=== PATIENT | male | born 1935 | race Caucasian/White ===

== ENCOUNTER 2017-04-20 10:20 | Observation (INO) | payer MEDICARE, OTHER ==
--- NOTE | 2017-04-20 11:42 | HP ---
SUPERVISING PHYSICIAN: Lon Bernstein MD CHIEF COMPLAINT: Increasing shortness of breath with palpitations. HISTORY OF PRESENT ILLNESS: Mr. Pollock is a 81 year-old patient of Dr. Moses. This morning he was in the office for his annual exam when he had an EKG done and it was noted on EKG that he was having some paroxysmal atrial fibrillation which did respond spontaneously without any intervention. It is reported that the patient has been having increasing shortness of breath over the last week with exertional dyspnea but denies any actual chest pains. Workup in the clinic showed on the x -ray that there was possibly a bibasilar infiltrate and the patient had 2+ pitting edema to the lower extremities. Dr. Su requested the patient be admitted to the medical/surgical floor for continuation of treatment with concerns for new onset of atrial fibrillation with complications from developing congestive heart failure. The patient is directly admitted to the medical/surgical floor in stable condition. PAST MEDICAL HISTORY: 1. Type 2 diabetes mellitus on oral therapy. 2. Hypertension. 3. Hyperlipidemia. 4. Benign prostatic hypertrophy on Flomax. 5. Seasonal allergies. 6. Skin cancer diagnosed in the late 50's with basal cell carcinoma which was cured. PAST SURGICAL HISTORY: 1. Arthroscopy of right knee. 2. Cyst removed from tailbone. 3. Basal cell carcinoma removed from left forehead. CURRENT MEDICATIONS: 1. Aspirin 325 mg daily. 2. Flomax 0.5 mg daily. 3. Glucophage 1000 mg twice a day. 4. Glucotrol XR 5 mg Extended Release daily. 5. Lisinopril 20 mg twice a day. 6. Verapamil 240 mg Sustained Release twice a day. 7. Zocor 20 mg daily. 8. Zyrtec 10 mg daily. ALLERGIES: NO KNOWN DRUG ALLERGIES. FAMILY HISTORY: Father at age 75 with complications to diabetes. Mother at age 85, unknown cause. He does have a sister who has lupus. SOCIAL HISTORY: The patient is retired, has previously been in the and he was a ready mix truck driver. He is and has three children. He has a history of smoking but quit many years previously. He does drink on a regular basis with wine. He denies any illicit drug use. REVIEW OF SYSTEMS: CONSTITUTIONAL: He denies any chills, fever or weight change. HEENT: Denies any hearing problems, blurred vision, eye pain, photophobia or any congestion. CARDIOVASCULAR: Denied chest pains, palpitations, tachycardia, orthopnea but does have edema as noted in the history of present illness. RESPIRATORY: As noted in the history of present illness. Dyspnea was frequent , wheezing and exertional dyspnea. GASTROINTESTINAL: Denies any abdominal pain, diarrhea or any stool changes but notes he has had some constipation. GENITOURINARY: Denies dysuria, hematuria or other urinary symptoms. NEUROLOGICAL: Denies dizziness, headaches,paraesthesias or weakness. PHYSICAL EXAMINATION: VITAL SIGNS: In the Emergency Room, temperature 95.5, pulse 80, blood pressure 142/68, respirations 16, saturation 83% on room air. On admission to the medical/surgical floor, vital signs showed a temperature of 97.9, pulse 77, blood pressure 143/80, saturation 89 to 92% on room air. Admission weight 111.5 kg. GENERAL: The patient is well-developed, well-nourished and appears to be in no acute distress on admission to the medical/surgical floor. HEENT: Tympanic membranes are clear. Bilateral oropharynx is pink and moist without any lesions. NECK: Supple, no jugular venous distention. Full range of motion and non- tender. CHEST: Very faint rhonchi heard to the bilateral apices and diminished towards the basis. CARDIOVASCULAR: Regular rate and rhythm with a notable distant murmur and no notable rubs or gallops. ABDOMEN: Soft, obese, non-tender with positive bowel sound. EXTREMITIES: 1+ pedal edema bilaterally. NEUROLOGIC: Cranial nerves II through XII are grossly intact. Facial features were symmetrical. Extraocular movements within normal limits. There was no notable nystagmus. He was alert and oriented x 3. LABORATORY: CBC showed to be within normal limits with a white count of 7.8, hemoglobin 15.6 and hematocrit 47.4. RBC indices showed elevated MC and MCH with normal MCHC. Differential showed to be within normal limits. Coagulation showed PT of 12.2, INR 1.0, PTT 32.8 with D-dimer less than 230. Chemistries showed normal electrolytes with sodium of 141, potassium 4.5, BUN 22, creatinine 1.18. Glucose on admission was 59, repeat was at 70. Uric acid in the clinic showed 38.0, magnesium 1.6. Liver function showed to be was negative. Troponin initially was less than 0.02 as well as CPK normal at 58. PSA was normal at 1.8, TSH normal at 1.37. Urinalysis was pending. BNP of 103. Chest x-ray: 2-view chest per radiology interpretation on admission to the medical/surgical floor showed unremarkable chest for age and stable. EKG on admission to the medical/surgical floor showed a normal sinus rhythm with no ST or T-wave changes. ASSESSMENT: 1. Hypoxia with exertional dyspnea on admission with concerns for new onset of congestive heart failure, unknown etiology with echocardiogram pending with the patient having increase in exertional dyspnea and mildly elevated BNP on admission. 2. Concerns for paroxysmal atrial fibrillation prior to admission with the patient currently on admission in normal sinus rhythm with no reported chest pains. 3. Hypomagnesemia possibly contributing to the reported paroxysmal atrial fibrillation, unknown etiology. 4. Type 2 diabetes mellitus on oral therapy. 5. Hypertension. 6. Benign prostatic hypertrophy on Flomax. PLAN: The patient will be admitted to the medical/surgical floor for continuation of evaluation and treatment and consultation with Cardiology with Dr. Moya today. He will be started on low-dose Lasix in attempt to decrease his lower extremity edema with close observation. He will be placed on oxygen as needed to maintain 02 saturation between 92 and 94%. Will plan to get ambulatory studies tomorrow after further treatment to further evaluate his need for oxygen at home given his ongoing exertional dyspnea. He will be on cardiac telemetry with serial cardiac enzymes to further rule out any acute myocardial infarction. We will replace his magnesium with 3 grams IV tonight and reevaluate in the morning. We will anticipate length of stay to be 2 to 3 days, possibly less pending resolution of symptoms and findings tomorrow and further consultation with Cardiology. Until then, we will continue to monitor the patient closely and treat appropriately. #[id number] [facility]
[2017-04-20] MEDS ORDERED: GLUCAGON INJ 1 MG VIAL SUBCU PRN (12:08)
[2017-04-20] MEDS ORDERED: SODIUM CHLORIDE 0.9% (FLUSH) 10 ML SYG IV PRN (12:08)
[2017-04-20] MEDS ORDERED: NITROGLYCERIN 0.4 MG 25 EA TAB SL PRN (12:08)
[2017-04-20] MEDS ORDERED: DEXTROSE 50% 25 GM/50 ML SYG IV PRN (12:08)
[2017-04-20] MEDS ORDERED: IV SET AND CAP CHANGE INJ INJ SCH (12:30)
[2017-04-20] MEDS ORDERED: NITROGLYCERIN 0.4 MG/HR PATCH TOP SCH (12:30)
[2017-04-20] MEDS ORDERED: MAGNESIUM SULFATE PREMIX 2GM 2 GM in PREMIX BAG 1 BAG IVPB ONE (15:35)
--- NOTE | 2017-04-20 16:02 | RAD ---
EXAM DESCRIPTION: Chest,2 Views CLINICAL HISTORY: 81 years,Male,CHF COMPARISON: October 24, 2010 FINDINGS: There are no consolidations. No effusions. No pneumothoraces. No nodules. Bony elements old left rib fractures stable. IMPRESSION: Unremarkable chest for age stable Electronically signed by: Keyshawn Greenfield MD 04/20/2017 4:01 PM CDT
[2017-04-20] MEDS: ASPIRIN TABLET 325 MG TAB PO SCH (16:08)
[2017-04-20] MEDS ORDERED: MAGNESIUM SULFATE PREMIX 2GM 50 ML IVPB ONE (16:12)
--- NOTE | 2017-04-20 16:42 | PCM.CORE ---
Physician DVT/VTE - Nurse DVT Assessment & Total Each Risk Factor Represents 3 Points: Age over 75 years DVT Assessment Score: 3 - 3-4 High Risk Treatments: Early Ambulation * Pharmacological: Enoxaparin 40 mg SQ Daily
[2017-04-20] MEDS: FUROSEMIDE INJ 40 MG/4 ML VIAL IV SCH (16:45)
[2017-04-20] MEDS ORDERED: ENOXAPARIN SODIUM 40 MG/0.4 ML SYG SUBCU SCH (17:00)
[2017-04-20] MEDS: TAMSULOSIN 0.4 MG CAP PO SCH (17:11)
[2017-04-20] MEDS ORDERED: MAGNESIUM HYDROXIDE 30 ML UD PO ONE (17:27)
[2017-04-20] MEDS: INSULIN LISPRO 100 UNITS/ML PEN SUBCU SCH ×2 (17:55→21:04)
[2017-04-20] MEDS ORDERED: VERAPAMIL ER 120 MG TAB PO ONE (19:37)
[2017-04-20] MEDS ORDERED: LISINOPRIL 10 MG TAB ONE (19:37)
[2017-04-20] MEDS ORDERED: metFORMIN HCL 500 MG TAB ONE (19:37)
[2017-04-20] MEDS: metFORMIN HCL 500 MG TAB PO SCH (20:18)
[2017-04-20] MEDS: LISINOPRIL 10 MG TAB PO SCH (20:19)
[2017-04-20] MEDS: VERAPAMIL ER 120 MG TAB PO SCH (20:19)
[2017-04-21] MEDS: INSULIN LISPRO 100 UNITS/ML PEN SUBCU SCH ×2 (07:27→11:41)
[2017-04-21] MEDS ORDERED: glipiZIDE 5 MG TAB ONE (07:36)
--- NOTE | 2017-04-21 07:40 | RAD ---
Two view chest INDICATION: Shortness of breath COMPARISON: April 20 IMPRESSION: Normal heart size. Mild prominence of the interstitial markings especially in the bases. No focal infiltrate. Small nodular area near the left hilum possibly vascular recommend short-term follow-up. Changes along the left chest wall are stable with evidence of pleural thickening and ossification likely from previous trauma or surgery. No large effusion or pneumothorax. Thin anterior ossifications possibly dish or ankylosing spondylitis thoracic spine. Minimal pleural thickening bilaterally Electronically signed by: Mark Fallon MD 04/21/2017 7:39 AM CDT
[2017-04-21] MEDS: LISINOPRIL 10 MG TAB PO SCH (08:58)
[2017-04-21] MEDS: FUROSEMIDE INJ 40 MG/4 ML VIAL IV SCH (08:59)
[2017-04-21] MEDS: TAMSULOSIN 0.4 MG CAP PO SCH (08:59)
[2017-04-21] MEDS: VERAPAMIL ER 120 MG TAB PO SCH (08:59)
[2017-04-21] MEDS: metFORMIN HCL 500 MG TAB PO SCH (08:59)
[2017-04-21] MEDS: ASPIRIN TABLET 325 MG TAB PO SCH (08:59)
[2017-04-21] MEDS ORDERED: POLYETHYLENE GLYCOL 3350 17 GM PCKT PO SCH (09:00)
[2017-04-21] MEDS ORDERED: glipiZIDE 5 MG TAB PO SCH (09:00)
[2017-04-21] MEDS ORDERED: POTASSIUM CHLORIDE 20 MEQ TAB PO ONE (10:14)
[2017-04-21] MEDS ORDERED: ALBUTEROL SULFATE 2.5 MG/3 ML VIAL NEB ONE (12:02)
[2017-04-21 14:52] VITALS: BP 101/65; TEMP 98.1; O2SAT 90
[2017-04-21] MEDS ORDERED: ENOXAPARIN SODIUM 40 MG/0.4 ML SYG SUBCU SCH (21:00)
--- NOTE | 2017-04-26 19:41 | DS ---
SUPERVISING PHYSICIAN: Lon Bernstein M.D. DISCHARGE DIAGNOSIS: 1. Hypoxia with exertional dyspnea with concerns for new onset of congestive heart failure, unknown etiology with echocardiogram pending at time of admission with the patient having increasing exertional dyspnea and mildly elevated BNP on admission requiring oxygen on discharge. 2. Moderate obstructive airway disease in a patient without a formal diagnosis of chronic obstructive pulmonary disease with Pulmonary Function Test indicating moderate obstruction with the patient requiring oxygen on discharge. 3. Concerns for paroxysmal atrial fibrillation prior to admission with the patient having shown a normal sinus rhythm through admission and prior to discharge with no reported chest pains. 4. Hypomagnesemia possibly contributing to the reported paroxysmal atrial fibrillation, unknown etiology. 5. Type 2 diabetes mellitus on oral therapy, well controlled. 6. Hypertension. 7. Benign prostatic hypertrophy on Flomax. HISTORY OF PRESENT ILLNESS: Mr. Pollock is a 81 year-old patient of Dr. Nhung bishop. The morning of admission he was seen in the office for an annual exam when he was having an EKG done and it was noted on EKG that he was having some paroxysmal atrial fibrillation which did spontaneously return to normal sinus without any intervention. It was reported that the patient had been having increasing shortness of breath over the last week with exertional dyspnea but denies any actual chest pains. Workup in the clinic showed on the x-ray that there was possibly a bibasilar infiltrate with new onset of atrial fibrillation and complications from developing congestive heart failure. The patient was directly admitted to the medical/surgical floor in stable condition. LABORATORY: CBC showed essentially to be within normal limits with a white count of 7.1 at discharge. MCV and MCH were slightly elevated. His platelet count was within normal limits at 235,000. Differential showed to be without a left shift. Coagulation studies showed a normal PT and PTT as well as a D- dimer of less than 230. Chemistries on admission was well showed normal electrolytes with BUN 22, creatinine 1.18 at discharge. Electrolytes remain within normal limits. BUN 24, creatinine 1.21. Uric acid was elevated at 8.0 in the clinic. He had a glucose initially on admission of 59. Magnesium was low at 1.6. Liver functions all showed to be within normal limits. Troponin was slightly elevated at 103. He had 3 sets of troponins that were all within normal limits with the last one being 0.02. Glucoses ranged from 43 to 90. Repeat magnesium after replacement was 2.2. Urinalysis was never submitted. There are no microbiology specimens submitted. RADIOLOGY: Repeat chest x-ray on admission to the Medical/Surgical floor and per radiology interpretation there were no consolidations or effusions or pneumothorax noted on two view chest. On the morning of discharge on 04/21/17, repeat chest x-ray was completed and per radiology interpretation there was note of mild prominence in the interstitial markings especially in the bases. No focal infiltrate. There was a small nodular area on the left hilum possibly vascular, recommend short followup. Changes along the left chest wall are stable with evidence of pleural thickening and ossification likely from previous trauma or surgery. There were no large effusions or pneumothorax noted. Minimal pleural thickening bilaterally. EKG on admission showed normal sinus rhythm. Telemetry during hospitalization showed normal sinus rhythm without any ectopic beats or abnormal changes. HOSPITAL COURSE: Mr. Pollock was admitted from Dr. Su's office as noted in the History of Present Illness. He was placed on telemetry with close observation and showed no changes in EKGs remaining in normal sinus rhythm and was without any episodes of atrial fibrillation noted through hospitalization. His troponins remained negative. He remained without chest pains. It was noted that his oxygenation levels were low on room air at rest, therefore a Pulmonary Function Test was completed with his FEV1 predicted 67% indicating a moderate obstruction. He also had a 6 minute ambulatory study completed and per radiology interpretation he was satting 89% on room air during ambulation, desatted to 78 at 465 feet at 5 minutes and returned to 90% with 2 liters nasal cannula. It was noted that he was short of breath during his walk. It was felt that after arrangements were made for home oxygen and portable O2 as well as nebulizers as the patient was started on Xopenex, he was stable enough to be discharged home to followup with Dr. Su in the clinic. The patient was given 2 doses of Lasix 40 mg and had good response to diuresis. He initially came in with 2+ pitting edema to his lower extremities which resolved prior to discharge, although he continued to have exertional dyspnea and desaturations as noted on his Pulmonary Function Test as well as his ambulatory studies. PLAN: The patient was discharged on 04/21/17 with instructions to have close clinical followup with Dr. Su as scheduled on 04/26/17 at 10:30 AM. He is to followup with Dr. Moya as scheduled for a stress test and to resume home medications as instructed, and start new prescriptions as directed. Arrangements for oxygen were made. He is to wear oxygen at all times at home at 2 liters nasal cannula and to return to the hospital should he have any worsening of his condition. New prescriptions at discharge were: 1. Lasix 20 mg daily, #30. 2. Xopenex 1.25 mg 3 times a day, #48. 3. Potassium chloride 10 mEq daily, #30. Diet at discharge was an ADA diet, low salt. Recommend fluid restriction to less than 1800 mL per day. To be seen in followup by Dr. Moya and Dr. Su. Activity is to increase as tolerated. No strenuous activity until completion of his stress test. Discharge condition was stable and improved. #[id number] [facility]
== END 2017-04-21 15:12 | disposition home or self-care (01) ==
LOC: GMAH 10:20 → MS 11:40 → INTOOBSV 11:40
PROVIDERS: ADMIT Nurse Practitioner Family; ATTEND Nurse Practitioner Family
DX: E83.42 Hypomagnesemia (principal); R09.02 Hypoxemia; R06.02 Shortness of breath; R00.2 Palpitations; E11.9 Type 2 diabetes mellitus without complications; I10 Essential (primary) hypertension; N40.0 Benign prostatic hyperplasia without lower urinary tract symptoms; E78.2 Mixed hyperlipidemia; J30.2 Other seasonal allergic rhinitis; Z12.5 Encounter for screening for malignant neoplasm of prostate; Z79.82 Long term (current) use of aspirin; Z79.84 Long term (current) use of oral hypoglycemic drugs; Z79.899 Other long term (current) drug therapy; Z87.891 Personal history of nicotine dependence; Z85.828 Personal history of other malignant neoplasm of skin; Z83.3 Family history of diabetes mellitus
CPT/HCPCS: 36415 ×7; 36416 ×5; 71020 ×2; 80053 ×2; 82550 ×4; 82553 ×4; 82947; 82948 ×4; 83735 ×2; 83880; 84443 ×2; 84484 ×4; 84550; 85025 ×2; 85379; 85610; 85730; 93005; 93225; 94060; 96365; 96372; 96375; 96376; G0103; G0378; J1650; J1940 ×2; J3475; J7611

== ENCOUNTER → 2017-10-14 | Outpatient (CLI) | payer MEDICARE, OTHER ==
--- NOTE | 2017-10-14 16:39 | CT ---
EXAM DESCRIPTION: Chest w/o Contrast : Computed Tomography. CLINICAL HISTORY: PULMONARY NODULE COMPARISON: CT abdomen the 2009. TECHNIQUE: Spiral-axial scans at 5.0 mm intervals through the lungs and thorax without IV contrast. 2.5 mm lung algorithm axial reconstructions. Coronal and sagittal 2.0 Mm reconstructions. No adverse reactions. Total Exam DLP: 707.28 mGy-cm. This exam was performed according to our departmental dose-optimization program which includes automated exposure control, adjustment of the mA and/or kV according to patient size and/or use of iterative reconstruction technique; to reduce radiation dose to as low as reasonably achievable (ALARA). FINDINGS: Broad pleural thickening lateral right lobe with parenchymal scarring is unchanged since 2010 (series 4, image 90-120).. More regions of parenchymal scarring in the right lower lobe since the prior study. Also thickening of the right major fissure. Soft tissue nodule with mean diameter 6 mm, associated with the horizontal fissure and thickening of the fissure (image 80). Soft tissue nodule with mean diameter 2.5 mm in the subpleural right middle lobe not associated with calcifications (image 88). Minimally dilated parenchymal airspaces in the upper lobes bilaterally. Parenchymal densities in the lingula and inferior left lobe. Soft tissue nodule in the posterior recess of the left lower lobe is stable since the prior study (image 120). Evaluation of the mediastinum and hilum limited due to lack of IV contrast but no gross soft tissue masses. Atherosclerotic calcifications of aorta proximal brachiocephalic vessels. Coronary artery calcifications/stents. Small bilateral axillary lymph nodes normal size. Heterogeneous density of the thyroid gland. No subdiaphragmatic fluid in the included peritoneal space. Normal density and size of the included adrenal glands. Again noted is large cystic left renal mass with Hounsfield density of the included cyst +17 - +25. The included cyst measures 15 x 12 cm. Largest dimensions of the transverse cyst on the prior study where 12 x 11 cm. Decreased bone density spine with multilevel levels of ankylosis and spur formation. Degenerative changes in the bilateral sternoclavicular joints. Also advanced arthrosis in the bilateral glenohumeral joints. IMPRESSION: 1. Bilateral soft tissue nodules, and areas of pleural thickening. Centrilobular early emphysematous disease more prevalent in the upper lung angulo. Focal pleural thickening on the right is stable since 2009. Small nodule in the left lower lobe recess is stable since 2010. [employer] Best Practice guidelines utilizing 2017 Fleischner Society recommendations for multiple soft tissue nodules: Consider [address] follow-up of bilateral nodules. Please see below.* 2. No gross soft tissue masses in the mediastinum and hilum. Evaluation is limited due to lack of IV contrast. 3. Left renal cyst appears to be enlarging compared to the prior study in 2009. 2017 Fleischner Society Recommendations for Multiple Solid Lung Nodules Follow-Up base on size (average of long- and short-axis diameters). Use most suspicious nodule for followup. Nodule Size <6 mm Low-Risk Patient: No routine follow-up Nodule Size <6 mm High-Risk Patient: Optional CT at 12 months Electronically signed by: Vincenzo Hays MD 10/14/2017 4:37 PM [facility]
== END | disposition home or self-care (01) ==
LOC: CT 09:00
PROVIDERS: ATTEND Internal Medicine
DX: J98.4 Other disorders of lung (principal)

== ENCOUNTER → 2018-10-05 | Outpatient (CLI) | payer MEDICARE, OTHER ==
--- NOTE | 2018-10-04 14:57 | CT ---
EXAM DESCRIPTION: Chest w/o Contrast : Computed Tomography. CLINICAL HISTORY: 83 years Male COPD COMPARISON: CT scan of the chest without contrast 10/14/2017. TECHNIQUE: Spiral-axial scans at 5 x 5 mm intervals through the lungs and thorax without IV contrast. 2.5 x 5 mm lung algorithm axial reconstructions. Coronal and sagittal 2.0 Mm reconstructions. Total Exam DLP: 993.36 mGy-cm. This exam was performed according to our departmental dose-optimization program which includes automated exposure control, adjustment of the mA and/or kV according to patient size and/or use of iterative reconstruction technique; to reduce radiation dose to as low as reasonably achievable (ALARA). Nodule measurements under 10 mm are given as mean value of 3 axes diameters. FINDINGS: Lungs and large airways: Small bilobed nodular density associated with the right horizontal fissure, each lobe measuring approximately 4 mm maximum and nonsolid appearance. Interpreted to be slightly smaller than on the prior study. On lung axial series 4, images 83 through 85. Stable branching pleural parenchymal scar posterior lateral right lower lobe recess. Stable scarring in the posterior recess of the left lung base with 3 mm nodule abutting the hemidiaphragm and unchanged stable bilateral parenchymal blebs in a centrilobular pattern unchanged from the prior study. Pleural spaces: Focal pleural thickening bilaterally and scarring as previously described. Mediastinum and Renee: Evaluation limited due to lack of IV contrast no enlarged nodes are soft tissue masses. Great vessels and Heart: Evaluation limited due to lack of IV contrast. Atherosclerotic calcification proximal brachiocephalic vessels, aortic arch, and coronary vessels stable. Soft tissues of neck base, axillae, and chest wall: Bilateral axillary lymph nodes remain small. Upper abdomen: No fluid or free air in the included peritoneal cavity. Gallbladder partially visualized. Partially visualized cystic mass in the left upper quadrant measuring 16 cm with fluid density of +8. Was also seen on the prior study, seen originating from the left kidney on abdominal CT scan in August 2010.. 1.6 x 2.7 cm mass in the left adrenal gland. Hounsfield density of -16. Stable since the prior study, and also the prior abdominal CT scan previously mentioned. Osseous structures: Diffuse bone density loss. Spondylosis at multiple levels with ankylosis of the thoracic spine. Advanced arthrosis of the bilateral sternoclavicular joints, bilateral glenohumeral joints, and bilateral AC joints. No destructive or lytic lesions. Ankylosis of left fourth through seventh ribs in the posterior axillary line. Also costovertebral arthrosis at multiple levels bilaterally. IMPRESSION: 1. Stable, bilobed, alexandr-Fissural nodule abutting the horizontal fissure, since the prior study one year ago. Other smaller nodules are also stable along with centrilobular emphysematous changes bilaterally mainly in the upper lobes, bilateral pleural thickening. Stable pleural-parenchymal scarring predominantly in the right lower lobe. Utilizing [employer] Best Practice recommendations and Fleischner Society 2017 recommendations for follow-up of solid nodules,, no further CT lung follow-up is recommended. Please see below*. 2. Stable fatty density mass in the left adrenal gland most likely an adenoma. Partial visualization of left renal cyst. *2017 Fleischner Society Recommendations for Single Solid Lung Nodule Follow-Up based on size (average of long- and short-axis diameters) <6 mm Low-Risk Patient: No routine follow-up <6 mm High-Risk Patient: Optional CT at 12 months Electronically signed by: Vincenzo Hays MD 10/04/2018 2:50 PM [facility]
== END ==
LOC: CT 10:48
PROVIDERS: ATTEND Internal Medicine
DX: J44.9 Chronic obstructive pulmonary disease, unspecified (principal); R91.8 Other nonspecific abnormal finding of lung field

== ENCOUNTER → 2019-05-09 | Outpatient (CLI) | payer MEDICARE, OTHER | LOC: GMA 11:09 | PROVIDERS: ATTEND Family Medicine | DX: I10 Essential (primary) hypertension (principal); E11.9 Type 2 diabetes mellitus without complications; M25.50 Pain in unspecified joint; Z12.5 Encounter for screening for malignant neoplasm of prostate | CPT/HCPCS: 84443; 84550; G0103 ==